=== PATIENT | male | born 1955 | race Caucasian/White ===

== ENCOUNTER 2017-02-10 18:02 | Emergency (ER) | payer SELFPAY ==
[2017-02-10 21:37] VITALS: BP 126/77
== END 2017-02-10 21:37 | disposition home or self-care (01) ==
LOC: ED 18:02
DX: S83.92XA Sprain of unspecified site of left knee, initial encounter (principal); S72.452D Displaced supracondylar fracture without intracondylar extension of lower end of left femur, subsequent encounter for closed fracture with routine healing; Z88.6 Allergy status to analgesic agent; V49.9XXA Car occupant (driver) (passenger) injured in unspecified traffic accident, initial encounter; Y93.89 Activity, other specified; Y92.89 Other specified places as the place of occurrence of the external cause; Y99.8 Other external cause status